=== PATIENT | female | born 1980 | race Hispanic/Latino ===

== ENCOUNTER 2017-08-01 15:23 | Emergency (ER) | payer OTHER ==
[2017-08-01] MEDS ORDERED: DEXAMETHASONE SOD PHOSPHATE 10MG/ML 1ML VIAL ONE (16:23)
[2017-08-01] MEDS ORDERED: IPRATROPIUM/ALBUTEROL SULFATE 3 ML SOLUTION IH ONE (16:35)
== END 2017-08-01 17:44 | disposition home or self-care (01) ==
LOC: EDH 15:23 → EDBD 15:23 → EDH 17:44
DX: J20.9 Acute bronchitis, unspecified (principal); Z98.890 Other specified postprocedural states; Z72.0 Tobacco use
CPT/HCPCS: 71045; 87804 ×2; 94640; 96372; 99285; J1100